=== PATIENT | male | born 1975 | race Caucasian/White ===

== ENCOUNTER 2017-07-20 08:42 | Emergency (ER) | payer OTHER ==
[~2017-07-20] VITALS: Ht 182.9 cm; Wt 99.8 kg
[~2017-07-20 08:42] MED LIST: DOXYCYCLINE HY100 MG PO; SULFAMETHOXAZO1 EAC1 PO
[2017-07-20] MEDS ORDERED: CITALOPRAM HBR20 MG PO (09:00)
[2017-07-20] MEDS ORDERED: MUPIROCIN22 GM TOP (10:10)
[2017-07-20] MEDS ORDERED: BACTRIM 400-801 EACH PO (10:10)
== END 2017-07-20 10:36 | disposition home or self-care (01) ==
LOC: ED 08:42
DX: J34.0 Abscess, furuncle and carbuncle of nose (principal); Z90.49 Acquired absence of other specified parts of digestive tract; Z79.899 Other long term (current) drug therapy
CPT/HCPCS: 99283

== ENCOUNTER 2021-03-09 08:03 | Day surgery (SDC) | payer OTHER ==
[~2021-03-09] VITALS: Ht 182.9 cm; Wt 100.0 kg
[~2021-03-09 08:03] MED LIST changes: +BACTRIM 400-801 EACH PO; +CITALOPRAM HBR20 MG PO; +MUPIROCIN22 GM TOP
--- NOTE | 2021-03-09 11:04 | NUR ---
03/09/21 1104 Ximena Heath 1057 PATIENT ARRIVES TO PACU ASLEEP, DOES NOT RESPOND TO DR HIGGINS AT BEDSIDE. RESP EVEN AND UNLABORED, ROOM AIR SATS >95%. 1100 PATIENT MOVING AROUND IN BED, RESTING WITH EYES CLOSED. ANSWERS QUESTIONS. REPORTS ABD CRAMPING. ENCOURAGED TO PASS GAS.
--- NOTE | 2021-03-14 10:43 | PATH ---
[facility] [address] [place], [place] [address] Signed THIS IS AN ADDENDUM REPORT SPECIMEN(S): A DUODENAL BIOPSY SPECIMEN(S): B ANTRUM BIOPSY SPECIMEN(S): C DISTAL ESOPHAGUS BIOPSY SPECIMEN(S): D MID ESOPHAGUS BIOPSY SPECIMEN(S): E POLYP AT 50 CM SPECIMEN(S): F LEFT COLON POLYP SPECIMEN(S): G RECTAL BIOPSY SPECIMEN SOURCE: A. DUODENAL BIOPSY B. ANTRUM BIOPSY C. DISTAL ESOPHAGUS BIOPSY D. MID ESOPHAGUS BIOPSY E. POLYP AT 50 CM F. LEFT COLON POLYP G. RECTAL BIOPSY CLINICAL HISTORY: Esophagogastroduodenoscopy, colonoscopy. Abdominal pain, diverticulosis. MICROSCOPIC DESCRIPTION: Histologic sections of all submitted blocks are examined by light microscopy. These findings, together with the gross examination, support the pathologic diagnosis. FINAL PATHOLOGIC DIAGNOSIS: A. Duodenum, biopsy: - No significant histopathology. B. Stomach, antrum, biopsy: - No significant histopathologic alterations. C. Distal esophagus, biopsy: - Mucosal eosinophilia, see comment. D. Mid esophagus, biopsy: - Eosinophilic esophagitis. E. Colon, 50 cm, polypectomy: - Multiple fragments of tubular adenoma. - There is no evidence of high-grade dysplasia or malignancy. F. Colon, left, polypectomy: - Multiple fragments of tubular adenoma. - There is no evidence of high-grade dysplasia or malignancy. PATIENT NAME: OZZY STANTON [facility] DATE OF : 73 REPORT #: [id number] PHYSICIAN: ANN-MARIE PATHOLOGY PCP: AVA MOY PA-C REPORT IS CONFIDENTIAL AND NOT TO BE RELEASED WITHOUT AUTHORIZATION [facility] [address] [place], [place] [address] Signed G. Rectum, biopsy: - Benign colonic mucosa with prominent intramucosal lymphoid aggregate. - No evidence of neoplasia. COMMENT: Regarding specimen A, the sections from the duodenal biopsy show portions of duodenal mucosa with long finger-like villi. There is no villous atrophy, crypt hyperplasia or intraepithelial lymphocytosis, making a diagnosis of celiac disease unlikely. There is no evidence of peptic duodenitis, microorganisms, abnormal infiltrates or neoplasia. Regarding specimen B, the sections through the gastric biopsies show fragments of histologically unremarkable antral mucosa. There is no evidence of acute or chronic inflammation. There is no evidence of H. pylori, intestinal metaplasia, abnormal infiltrates or neoplasia. Regarding specimen C, the sections through the biopsy show the presence of squamous epithelium that is infiltrated by large numbers of eosinophils. They do not number 20 per high-power field as in classical eosinophilic esophagitis and there are no eosinophilic microabscesses. Fourteen eosinophils per high-power field are identified in this specimen. There are more eosinophils than are typically seen in patients with GERD. This patient may have incomplete manifestations of eosinophilic esophagitis or GERD with increased eosinophils. The changes may also be produced by reactions to drugs, infections or allergies. Regarding specimen D, the sections through the biopsy show fragments of reactive-appearing squamous epithelium that are infiltrated with increased numbers of eosinophils. Focally they are greater than 20 intraepithelial eosinophils per high-power magnification field (24 eosinophils per high-power field). No significant eosinophilic microabscesses are present. Superficial zonation of the eosinophils is seen. These findings are consistent with the diagnosis of eosinophilic esophagitis. No glandular mucosa is identified. Regarding specimen G, sections of colonic tissue demonstrate a benign intramucosal lymphoid aggregate. Intramucosal lymphoid aggregates can sometimes appear as polyps endoscopically. They have no clinical significance. There is no evidence of dysplasia or malignancy. TWK:[id number] PATIENT NAME: OZZY STANTON PATHOLOGY DATE OF : 73 REPORT #: [id number] PHYSICIAN: ANN-MARIE MORENO PCP: AVA MOY PA-C REPORT IS CONFIDENTIAL AND NOT TO BE RELEASED WITHOUT AUTHORIZATION [facility] [address] [place], [place] [address] Signed GROSS DESCRIPTION: Seven specimens are received in seven containers, labeled "KW." A. The specimen, labeled "KW, duodenum," is received in formalin and consists of four cervantes soft tissue fragments that measure 0.3 cm in greatest dimension. The specimen is entirely submitted in cassette (A1). B. The specimen, labeled "KW, antrum," is received in formalin and consists of two cervantes soft tissue fragments that measure 0.3 cm in greatest dimension. The specimen is entirely submitted in cassette (B1). C. The specimen, labeled "KW, distal esophagus," is received in formalin and consists of two cervantes soft tissue fragments that measure 0.2-0.4 cm in greatest dimension. The specimen is entirely submitted in cassette (C1). D. The specimen, labeled "KW, mid esophagus," is received in formalin and consists of five cervantes soft tissue fragments that measure 0.2-0.5 cm in greatest dimension. The specimen is entirely submitted in cassette (D1). E. The specimen, labeled "KW, polyp at 50 cm," is received in formalin and consists of two cervantes soft tissue fragments that measure 0.3-0.4 cm in greatest dimension. The specimen is entirely submitted in cassette (E1). F. The specimen, labeled "KW, polyp at left colon," is received in formalin and consists of two cervantes soft tissue fragments that measure 0.3-0.4 cm in greatest dimension. The specimen is entirely submitted in cassette (F1). G. The specimen, labeled "KW, rectum," is received in formalin and consists of one cervantes soft tissue fragment that measures 0.3 cm in greatest dimension. The specimen is entirely submitted in cassette (G1). AT (under the direct supervision of a pathologist) The Gross Description was prepared using a voice recognition system. The report was reviewed for accuracy; however, sound-alike word errors, addition and/or deletions may occur. If there is any question about this report, please contact Client Services. PERFORMING LABORATORY: The technical component was performed by [facility], [address] [place] [id number] (Court Collections Officer: Natali Ferrara MD; CLIA# [id number]). The professional interpretation was performed by [facility], [facility], [address] PATIENT NAME: OZZY STANTON PATHOLOGY DATE OF : 73 REPORT #: [id number] PHYSICIAN: ANN-MARIE MORENO PCP: AVA MOY PA-C REPORT IS CONFIDENTIAL AND NOT TO BE RELEASED WITHOUT AUTHORIZATION [address] [address] Signed [id number]. ADDITIONAL NOTES: Immunohistochemical and/or in situ hybridization studies were performed on this case with the appropriate positive controls that react as expected. This test was developed and its performance characteristics determined by [facility]. It has not been cleared or approved by the U.S. Food and Drug Administration. The FDA has determined that such clearance or approval is not necessary. This test is used for clinical purposes. It should not be regarded as investigational or for research. [facility] is certified under the Clinical Laboratory Improvement Amendments of 1988 (CLIA) as qualified to perform high complexity clinical laboratory testing. This assay has not been validated for specimens that have been decalcified. The technical component was performed by [facility], [address] [place] [id number] ([address] Collections Officer: Natali Ferrara MD; CLIA# [id number]). The professional interpretation was performed by [facility], [facility], [address] [place] [address]. REASON FOR ADDENDUM: To add results of additional testing. ADDENDUM COMMENT: Helicobacter pylori immunohistochemical stain is negative on specimen B. Control slides stain appropriately positive. There is no change in the above diagnosis. TWK:benny Diagnostician: Jan Goetz MD Pathologist Electronically Signed 03/14/2021 Copies: ~ PATIENT NAME: OZZY STANTON PATHOLOGY DATE OF : 73 REPORT #: [id number] PHYSICIAN: ANN-MARIE PATHOLOGY PCP: AVA MOY PA-C REPORT IS CONFIDENTIAL AND NOT TO BE RELEASED WITHOUT AUTHORIZATION
--- NOTE | 2021-03-15 16:26 | OR ---
[facility] [address] [place], [place] [address] Signed DATE OF OPERATION: 03/09/2021 SURGEON: Varun Higgins MD PREOPERATIVE DIAGNOSES: 1. Gastroesophageal reflux symptoms. 2. Bilateral lower abdominal burning pain. POSTOPERATIVE DIAGNOSES: 1. Distal esophagitis and mid esophagitis with poor flap valve consistent with hiatal hernia. 2. Multiple diverticula and polyps x2. PROCEDURES: 1. Esophagogastroduodenoscopy with biopsy. 2. Total colonoscopy to cecum with cold snare polypectomy x2. ANESTHESIA: Intravenous sedation; fentanyl 150 mcg, Versed 8 mg. INDICATION: This 45-year-old white man is a patient of Dyana Covington PA-C. He has seen various gastroenterologists over time. His current complaints is that of lower abdominal pain, left and right side which is described as "burning." Additionally, he has had what sounds like gastroesophageal reflux symptoms. He has been on PPI medication in the past and is thought to be recently. He is admitted at this time to undergo upper endoscopy and colonoscopy to characterize his problems. Understanding well the risks of bleeding, infection, perforation findings upper endoscopy showed a poor flap valve consistent with hiatal hernia and distal esophagitis without sign of Julian's epithelium or neoplasm. Colonoscopy showed a well prepped colon. Complete colonoscopy was undertaken of the cecum. There were two sessile polyps, both excised with cold snare technique and multiple diverticula of the sigmoid and left colon. DESCRIPTION OF PROCEDURE: The patient was brought to the endoscopy suite, given topical lidocaine hypopharyngeal anesthesia and placed in lateral decubitus position. He was given intravenous sedation to the point of slurred speech and nystagmus with full cardiopulmonary monitoring. A bite block was placed. An Olympus video upper endoscope was passed in the hypopharynx. The vocal cords were visualized as normal. The scope was advanced to the esophagus and throughout its length, it appeared somewhat inflamed, particularly in the distal Electronically Signed By: VARUN HIGGINS MD 03/15/21 1626 PATIENT NAME: OZZY STANTON OPERATIVE REPORT DATE OF : 73 REPORT #: [id number] PHYSICIAN: VARUN HIGGINS MD PCP: DYANA COVINGTON PA-C REPORT IS CONFIDENTIAL AND NOT TO BE RELEASED WITHOUT AUTHORIZATION [facility] [address] [place], [place] [address] Signed portion. There was no sign of Julian's epithelium stricture neoplasm. Scope was passed to the stomach, which was insufflated with air. Retroflexed view showed a poor flap valve consistent with hiatal hernia. The antrum and pylorus and duodenal areas appeared normal. Biopsies were obtained nevertheless. Ampulla was well visualized and characteristic mucosa was noted. The scope was withdrawn to the stomach and biopsies taken of the antrum for both GALINA and pathologic testing. Retroflexed view undertaken, did confirm poor flap valve consistent with hiatal hernia. The scope was straightened withdrawn. Biopsies were taken of the distal and midesophagus as well. More proximal esophagus was reasonably normal. The scope was removed and plans made for colonoscopy. Additional sedation was given and digital rectal examination performed. An Olympus video colonoscope was passed in the rectum and manipulated throughout the colon noting numerous diverticula of the sigmoid colon. A sessile polyp was noted about 50 cm, which was excised with cold snare technique and passed for pathology. The scope was further advanced ultimately to the cecum. The ileocecal valve and appendiceal orifice were normal. The scope was withdrawn and examination throughout showed no sign of abnormality until about the splenic flexure of the left colon where sessile polyp was once again noted. This was excised with cold snare technique as well. Further withdrawal of scope showed no other abnormalities other than diverticulosis of the sigmoid and left colon. Retroflexed view was normal as well. The scope was removed and the patient was taken to the recovery room in good condition. CONCLUDING DIAGNOSES: 1. Esophagitis with poor flap valve consistent with hiatal hernia. 2. Polyps x2 of colon and diverticulosis of colon. PLAN: We will see the patient. We would recommend repeat colonoscopy in 3 years based on the polyps. We would recommend continued or restart use of PPI medication. We will see patient back in a month or so. Review his findings. MD JOVANI Donohue/ELIER /[id number] cc: Dyana Covington PA-C Electronically Signed By: VARUN HIGGINS MD 03/15/21 1626 PATIENT NAME: OZZY STANTON OPERATIVE REPORT DATE OF : 73 REPORT #: [id number] PHYSICIAN: VARUN HIGGINS MD PCP: DYANA COVINGTON PA-C REPORT IS CONFIDENTIAL AND NOT TO BE RELEASED WITHOUT AUTHORIZATION [address] [address] Signed Copies: DYANA COVINGTON PA-C ~ Electronically Signed By: VARUN HIGGINS MD 03/15/21 1626 PATIENT NAME: OZZY STANTON OPERATIVE REPORT DATE OF : 73 REPORT #: [id number] PHYSICIAN: VARUN HIGGINS MD PCP: DYANA COVINGTON PA-C REPORT IS CONFIDENTIAL AND NOT TO BE RELEASED WITHOUT AUTHORIZATION
== END 2021-03-09 11:55 | disposition home or self-care (01) ==
LOC: OPS 08:03 → DS 08:03 → OPS 09:00
PROVIDERS: ATTEND Surgery
PROC: 0DBH8ZX Excision of Cecum, Via Natural or Artificial Opening Endoscopic, Diagnostic (ICD-10-PCS; principal; 2021-03-09 09:00)
DX: K20.90 Esophagitis, unspecified without bleeding (principal); K57.30 Diverticulosis of large intestine without perforation or abscess without bleeding; K63.5 Polyp of colon; K44.9 Diaphragmatic hernia without obstruction or gangrene
CPT/HCPCS: 88305; 88342; 99153; G0500; J2250; J3010; J7121